=== PATIENT | female | born 1990 | race Caucasian/White ===

== ENCOUNTER 2020-11-26 23:59 | Inpatient (IN) | payer OTHER ==
[2020-11-27] MEDS ORDERED: OXYTOCIN 20 UNITS in 0.9% NS 20 UNIT/1,000 ML INFUS.BAG IV ONE (00:46)
[2020-11-27] MEDS ORDERED: LIDOCAINE HCL 1% PRESERVATIVE FREE - 30ML VIAL ONE (00:47)
[2020-11-27 00:58] LABS: BASO % 0.2 % (0-2.0); EOS % 0.1 % (0-4.5); HEMATOCRIT 39.1 % (32.4-45.2); HEMOGLOBIN 13.3 GM/dL (10.7-15.3); MCH 30.3 pg (25.7-33.7); MCHC 33.9 g/dl (32.0-36.0); MEAN CELL VOLUME 89.3 fl (80-96); MEAN PLT VOLUME 10.8 fl (7.5-11.1); MONO % 4.4 % (3.8-10.2); NEUT % 82.3 % (42.8-82.8); PLATELET COUNT 214 K/MM3 (134-434); RBC 4.38 M/mm3 (3.60-5.2); RDW 13.3 % (11.6-15.6); WHITE BLOOD COUNT 21.3 K/mm3 (4.0-10.0)
[2020-11-27 01:05] LABS: INR 0.87 (0.83-1.09); PROTHROMBIN TIME (PATIENT) 10.8 SEC (9.7-13.0)
[2020-11-27 01:08] LABS: ACTIVATED PTT 24.1 SECONDS (25.2-36.5)
[2020-11-27 01:10] VITALS: BMI 26.4
[2020-11-27 01:21] LABS: CALCIUM 8.9 mg/dL (8.5-10.1)
[2020-11-27 01:22] LABS: BLOOD UREA NITROGEN 9.1 mg/dL (7-18)
[2020-11-27 01:25] LABS: CREATININE 0.7 mg/dL (0.55-1.3)
[2020-11-27] MEDS ORDERED: BENZOCAINE 20% 57 GM BOTTLE TP PRN (01:50)
[2020-11-27] MEDS ORDERED: oxyCODONE HCL 5 MG TABLET PO PRN (01:50)
[2020-11-27] MEDS ORDERED: BISACODYL 10 MG SUPP.RECT RC PRN (01:50)
[2020-11-27] MEDS ORDERED: METHYLERGONOVINE MALEATE 0.2 MG/1 ML AMP IM PRN (01:50)
[2020-11-27 01:51] LABS: PLATELET ESTIMATE ADEQUATE
[2020-11-27] MEDS ORDERED: DEXTROSE 5%-LACTATED RINGERS 1,000 ML IV SCH (02:00)
[2020-11-27] MEDS ORDERED: OXYTOCIN 20 UNITS in 0.9% NS 20 UNIT/1,000 ML INFUS.BAG IV SCH (02:00)
[2020-11-27 02:19] LABS: HIV INTERPRETATION NEGATIVE (NEGATIVE)
[2020-11-27] MEDS: ACETAMINOPHEN 325 MG TABLET (FP) PO PRN ×4 (04:01→21:01)
[2020-11-27] MEDS: IBUPROFEN 600 MG TABLET (FP) PO PRN ×4 (04:02→21:01)
[2020-11-27] MEDS: WITCH HAZEL 50% (TUCKS) 40 PAD/JAR PAD TP PRN ×2 (04:03→20:54)
[2020-11-27 09:50] LABS: BASO % 0.1 % (0-2.0); HEMATOCRIT 31.2 % (32.4-45.2); HEMOGLOBIN 10.6 GM/dL (10.7-15.3); LYMPH % 12.9 % (8-40); MCH 30.7 pg (25.7-33.7); MEAN CELL VOLUME 90.2 fl (80-96); MEAN PLT VOLUME 10.6 fl (7.5-11.1); MONO % 4.6 % (3.8-10.2); NEUT % 82.4 % (42.8-82.8); PLATELET COUNT 171 K/MM3 (134-434); RBC 3.46 M/mm3 (3.60-5.2); RDW 13.2 % (11.6-15.6); WHITE BLOOD COUNT 20.8 K/mm3 (4.0-10.0)
[2020-11-27 10:58] LABS: ANISOCYTOSIS 1+; MACROCYTOSIS 0; PLATELET ESTIMATE NORMAL
[2020-11-27] MEDS: PRENATAL VITAMINS W/ FOLIC ACID TABLET (FP) PO SCH (11:21)
[2020-11-27] MEDS: BENZOCAINE 28 GM HEMORRHOIDAL OINTMENT TP PRN (20:54)
[2020-11-27 22:22] VITALS: TEMP 98.2
[2020-11-28] MEDS: IBUPROFEN 600 MG TABLET (FP) PO PRN ×2 (09:36→14:16)
[2020-11-28] MEDS: ACETAMINOPHEN 325 MG TABLET (FP) PO PRN ×2 (09:36→14:15)
[2020-11-28 09:57] VITALS: BP 111/72; PULSE 80
[2020-11-28] MEDS: PRENATAL VITAMINS W/ FOLIC ACID TABLET (FP) PO SCH (12:18)
[2020-11-28] MEDS: BENZOCAINE 28 GM HEMORRHOIDAL OINTMENT TP PRN (16:07)
[2020-11-28] MEDS ORDERED: SENNOSIDES/DOCUSATE COMBO (SENNA PLUS) TABLET (UD) PO PRN (22:00)
== END 2020-11-28 18:00 | disposition home or self-care (01) | DRG 807 ==
LOC: JLDR 23:59 → J3W 11-27 03:34
PROVIDERS: ADMIT Obstetrics & Gynecology; ATTEND Obstetrics & Gynecology
PROC: 10E0XZZ Delivery of Products of Conception, External Approach (ICD-10-PCS; principal; 2020-11-27)
PROC: 0W8NXZZ Division of Female Perineum, External Approach (ICD-10-PCS; 2020-11-27)
DX: O42.02 Full-term premature rupture of membranes, onset of labor within 24 hours of rupture (principal); Z37.0 Single live birth; O70.1 Second degree perineal laceration during delivery; O90.81 Anemia of the puerperium; D64.9 Anemia, unspecified; Z87.891 Personal history of nicotine dependence; Z3A.38 38 weeks gestation of pregnancy
CPT/HCPCS: 36415; 59409; 80048; 85025; 85610; 85730; 86780; 86850; 86900; 86901; 87389; C9803; U0003

== ENCOUNTER 2024-08-28 02:35 | Inpatient (IN) | payer OTHER ==
[2024-08-28] MEDS: ELECTROLYTE-148 SOLN 1,000 ML IV SCH (03:00)
[2024-08-28 03:23] VITALS: BMI 26.4
[2024-08-28] MEDS ORDERED: OXYTOCIN 20 UNITS in 0.9% NS 20 UNIT/1,000 ML INFUS.BAG IV ONE (03:27)
[2024-08-28 03:37] LABS: INR 0.82 (0.83-1.09); PROTHROMBIN TIME (PATIENT) 9.5 SEC (9.7-13.0)
[2024-08-28 03:40] LABS: ACTIVATED PTT 26.9 SECONDS (25.2-36.5)
[2024-08-28 03:48] LABS: BASO % 0.5 % (0-2.0); EOS % 0.3 % (0-4.5); HEMATOCRIT 38.6 % (32.4-45.2); MCH 29.8 pg (25.7-33.7); MCHC 33.6 g/dl (32.0-36.0); MEAN CELL VOLUME 88.6 fl (80-96); MEAN PLT VOLUME 10.2 fl (7.5-11.1); MONO % 5.9 % (3.8-10.2); NEUT % 67.3 % (42.8-82.8); PLATELET COUNT 211 10^3/uL (134-434); RBC 4.36 M/mm3 (3.60-5.2); RDW 13.7 % (11.6-15.6); WHITE BLOOD COUNT 15.7 K/mm3 (4.0-10.0)
[2024-08-28 03:53] LABS: BLOOD UREA NITROGEN 12.5 mg/dL (7-18); CALCIUM 9.1 mg/dL (8.5-10.1)
[2024-08-28 03:57] LABS: CREATININE 0.8 mg/dL (0.55-1.3)
[2024-08-28 04:40] LABS: HIV INTERPRETATION NEGATIVE (NEGATIVE)
[2024-08-28] MEDS: OXYTOCIN 20 UNITS in 0.9% NS 20 UNIT/1,000 ML INFUS.BAG IV SCH (05:33)
[2024-08-28] MEDS ORDERED: ELECTROLYTE-148 SOLN 1,000 ML IV SCH (06:00)
[2024-08-28] MEDS ORDERED: BISACODYL 10 MG SUPP.RECT RC PRN (06:01)
[2024-08-28] MEDS ORDERED: BENZOCAINE 28 GM HEMORRHOIDAL OINTMENT TP PRN (06:01)
[2024-08-28] MEDS ORDERED: METHYLERGONOVINE MALEATE 0.2 MG/1 ML AMP IM PRN (06:01)
[2024-08-28] MEDS ORDERED: WITCH HAZEL 50% (TUCKS) 40 PAD/JAR PAD TP PRN (06:01)
[2024-08-28] MEDS ORDERED: IBUPROFEN 600 MG TABLET (FP) PO PRN (06:01)
[2024-08-28 06:17] LABS: CORD HCO3 21.9 mmHg (20-29); CORD PCO2 42.7 mmHg (30-78); CORD pH 7.328 (7.14-7.44)
[2024-08-29 07:53] LABS: BASO % 0.5 % (0-2.0); EOS % 0.5 % (0-4.5); HEMOGLOBIN 12.6 GM/dL (10.7-15.3); LYMPH % 23.9 % (8-40); MCH 29.9 pg (25.7-33.7); MCHC 33.2 g/dl (32.0-36.0); MEAN PLT VOLUME 9.8 fl (7.5-11.1); MONO % 5.6 % (3.8-10.2); NEUT % 69.5 % (42.8-82.8); PLATELET COUNT 167 10^3/uL (134-434); RBC 4.22 M/mm3 (3.60-5.2); RDW 13.6 % (11.6-15.6); WHITE BLOOD COUNT 14.7 K/mm3 (4.0-10.0)
[2024-08-29] MEDS: ACETAMINOPHEN 325 MG TABLET (FP) PO PRN (11:38)
[2024-08-29 13:01] VITALS: BP 116/75; PULSE 92; RESP 17; TEMP 97.5
[2024-08-29] MEDS: BENZOCAINE 20% 57 GM BOTTLE TP PRN (15:43)
[2024-08-29] MEDS ORDERED: SENNOSIDES/DOCUSATE COMBO (SENNA PLUS) TABLET (UD) PO PRN (22:00)
== END 2024-08-29 16:40 | disposition home or self-care (01) | DRG 807 ==
LOC: JLDR 02:35 → J3W 08:00
PROVIDERS: ADMIT Obstetrics & Gynecology; ATTEND Obstetrics & Gynecology
PROC: 10E0XZZ Delivery of Products of Conception, External Approach (ICD-10-PCS; principal; 2024-08-28)
PROC: 0KQM0ZZ Repair Perineum Muscle, Open Approach (ICD-10-PCS; 2024-08-28)
DX: O48.0 Post-term pregnancy (principal); Z37.0 Single live birth; O70.1 Second degree perineal laceration during delivery; Z3A.40 40 weeks gestation of pregnancy
CPT/HCPCS: 36415; 36600; 59409; 80048; 82803; 85025; 85610; 85730; 86780; 86850; 86900; 86901; 87389